=== PATIENT | male | born 1985 | race Caucasian/White ===

== ENCOUNTER 2018-05-05 05:54 | Day surgery (SDC) | payer OTHER ==
[~2018-05-05] VITALS: Ht 167.6 cm; Wt 56.0 kg
[~2018-05-05 05:54] MED LIST: LEVE100S6 PO
[2018-05-05] MEDS ORDERED: LACTATED RINGERS 1,000 ML IV SCH (06:22)
[2018-05-05 06:27] VITALS: BP 116/78
[2018-05-05] MEDS ORDERED: BALANCED SALT OPHTH IRRIG SOLN 18ML ONE (06:45)
[2018-05-05] MEDS ORDERED: BUPIVACAINE/PF 0.25% ONE (06:45)
[2018-05-05] MEDS ORDERED: EPINEPHRINE 1 MG/ML, 1ML ONE (06:45)
[2018-05-05] MEDS ORDERED: FENTANYL PF 250 MCG/5ML ONE (07:33)
[2018-05-05] MEDS ORDERED: MIDAZOLAM 1 MG/ML, 2ML ONE (07:33)
[2018-05-05] MEDS ORDERED: MORPHINE SULFATE 4 MG/ML, 1ML IVPush PRN (08:00)
[2018-05-05] MEDS ORDERED: ONDANSETRON 2MG/ML, 2ML IV PRN (08:00)
[2018-05-05] MEDS ORDERED: FENTANYL PF 100 MCG/2ML IV PRN (08:00)
[2018-05-05] MEDS ORDERED: PROMETHAZINE 25 MG/ML, 1ML IV PRN (08:00)
[2018-05-05] MEDS ORDERED: MEPERIDINE/PF 25MG/0.5ML IVPush PRN (08:00)
[2018-05-05] MEDS ORDERED: LABETALOL 5MG/ML, 20ML IV PRN (08:00)
[2018-05-05] MEDS ORDERED: hydrALAzine 20 MG/ML, 1ML IV PRN (08:00)
[2018-05-05] MEDS ORDERED: OXYcodone 5 MG/5 ML ORAL.SOL UDC PO PRN (08:00)
[2018-05-05] MEDS ORDERED: PROPOFOL 10 MG/ML, 20ML ONE (10:53)
== END 2018-05-05 10:10 | disposition home or self-care (01) ==
LOC: OUT 05:54
PROVIDERS: ATTEND Plastic Surgery
DX: Z47.2 Encounter for removal of internal fixation device (principal); Z98.890 Other specified postprocedural states
CPT/HCPCS: 20670; J2250; J2704; J3010; J7120; J0171; J3490